=== PATIENT | female | born 1970 | race Caucasian/White ===

== ENCOUNTER → 2019-09-23 | Outpatient (CLI) | payer OTHER ==
--- NOTE | 2019-09-23 12:47 | CT ---
PROVIDED CLINICAL HISTORY/REASON FOR EXAM: CLOSED INJURY OF HEAD TECHNIQUE: Volumetric CT data of the brain was obtained without intravenous contrast. This exam was performed according to our departmental dose-optimization program, which includes automated exposure control, adjustment of the mA and/or kV according to patient size and/or use of iterative reconstruction technique. COMPARISON: None available. FINDINGS: The ventricles and sulci are normal, without hydrocephalus or significant atrophy. Septum pellucidum and third ventricle are midline. No acute infarction is evident by CT. No acute hemorrhage is present. No mass or mass effect is present. No fracture identified. Right supraorbital soft tissue swelling. The visualized paranasal sinuses are unremarkable. IMPRESSION: 1. No acute intracranial abnormality. 2. Right supraorbital soft tissue swelling. Electronically signed by: Chente Matute MD 09/23/2019 12:45 PM [facility] [employer]
== END ==
LOC: CT 12:11
PROVIDERS: ATTEND Nurse Practitioner Family
DX: S09.90XA Unspecified injury of head, initial encounter (principal); M79.9 Soft tissue disorder, unspecified